=== PATIENT | male | born 1985 | race African-American/Black ===

== ENCOUNTER → 2016-12-03 | Outpatient (CLI) | payer OTHER ==
[~2016-12-03] VITALS: Ht 175.3 cm; Wt 149.7 kg
[~2016-12-03] MED LIST: GUAI100L PO
[2016-12-03 14:53] VITALS: BP 133/85; PULSE 85; Ht 175.3 cm; Wt 149.7 kg
== END | disposition home or self-care (01) ==
LOC: C.NEUR 14:24
PROVIDERS: ATTEND Allergy & Immunology Allergy
DX: G47.30 Sleep apnea, unspecified (principal); G47.34 Idiopathic sleep related nonobstructive alveolar hypoventilation; E66.01 Morbid (severe) obesity due to excess calories

== ENCOUNTER 2023-05-25 03:29 | Inpatient (IN) ==
--- NOTE | 2023-05-25 03:44 | Emergency Department Note ---
Impression & Plan Respiratory failure, Altered mental state, Alcohol overdose ED Provider Note CHIEF COMPLAINT: Altered mental status HISTORY OF PRESENT ILLNESS: This 37-year-old male [facility] of a possible alcohol overdose. The patient was found sitting in an alley by police smelling of alcohol with an altered mental status. The patient was verbal with EMS staff and refused everything in the ambulance. When the patient arrived in the emergency department he was only partially responsive to questioning from nursing staff and did not answer any my questions. Unknown if there was any injury or trauma. Unknown if the patient ingested anything other than alcohol. REVIEW OF SYSTEMS: Unable to obtain due to patient condition ALLERGIES:Unable to obtain due to patient condition MEDICATIONS: Unable to obtain due to patient condition. The patient's mother does not think he is on any medication. PMH: Unable to obtain due to patient condition. The patient's mother does not believe he has any health problems other than being overweight. SOCIAL HISTORY: The patient's mother states that he does live and work in [email or web address]. The patient's mother lives in [place]. The patient's mother's phone number is [phone]. PHYSICAL EXAM: VITALS: Vitals are noted on the nurse's note and reviewed by myself. GENERAL: The patient was saying some mumbled words to nursing staff when I first walked in the room. However, he would not answer any questions appropriately. As I walked in the room the patient appeared to fall asleep and only responded to painful stimuli. SKIN: The skin was without obvious lacerations, abrasions, or rashes. Capillary reflex less than 2 seconds. EARS: External auditory canals clear, tympanic membranes pearly kay without erythema or effusion bilaterally. No tragus tenderness. No mastoid tenderness. No hemotympanum bilaterally. EYES: Pinpoint pupils bilaterally. Pupils are equal and somewhat reactive. Unable to test extraocular movements due to patient condition. Conjunctivae with mild injection, but no discharge. Sclerae without icterus. NOSE: Patent without discharge. MOUTH: Mucous membranes moist. Uvula midline. Airway patent. NECK: Supple without nuchal rigidity. HEART: Regular rate and rhythm without murmurs gallops or rubs. LUNGS: Clear to auscultation bilaterally without wheezes, rales or rhonchi. No retractions or accessory muscle use. ABDOMEN: Positive bowel sounds x 4. Normal tympanic percussion. Soft, no apparent tenderness to palpation, no obvious masses or organomegaly. No guarding or rebound tenderness. MUSCULOSKELETAL: Peripheral pulses 2+ and equal in the bilateral upper and lower extremities. NEUROLOGIC: The patient was only minimally responsive to painful stimuli during my exam. DIFFERENTIAL DIAGNOSIS: Differential diagnosis includes alcohol intoxication, drug intoxication, toxicologic, infection, hypoglycemia, electrolyte abnormalities, cardiac sources, intracerebral event, neurologic, trauma, psychosis, as well as other pathologies. EMERGENCY DEPARTMENT COURSE and MDM: I examined the patient. The patient was only responsive to painful stimuli upon my exam. EMS stated that the patient admitted to drinking alcohol and had been talking with them and refusing treatment in the ambulance. The patient was minimally verbally responsive to nursing staff upon initial arrival, but then appeared to fall asleep. The patient's pupils were pinpoint on exam. No obvious track sánchez on exam. The patient's blood sugar at bedside was 179. Straight cath urine sample was obtained to assess for drug use or infection. An IV lock was placed and labs were drawn. Conservative care measures were instituted and the patient was monitored throughout their stay. The patient was placed in a partially upright position. Aspiration precautions were instituted. Continuous vehicle monitor technician: Order was placed for continuous cardiac and pulse ox monitoring. Patient was placed on the vehicle monitor technician and continuous pulse ox. Patient was noted to be in normal sinus rhythm at an initial rate of 90 bpm. Nursing staff alerted me around 0425 that the patient's pulse ox kept dropping into the 80s even on an oxy mask. The patient's mental status also seemed to decline at that time and he was no longer responsive to even painful stimuli. I returned to the bedside along with Dr. Negron for evaluation of the patient. The patient's urine drug screen had not come back yet so he was given Narcan 0.4 mg IV followed by Narcan 2 mg IV with no change in his symptoms. The decision was made to intubate the patient along with additional work-up initiated. The patient was moved to room B1 for the intubation and continued monitoring. Please refer to Dr. Negron's note for intubation note as well as additional details. The patient was given 1 L normal saline solution bolus. EKG was interpreted by myself and shows sinus rhythm at 91 bpm with prolonged QT of [address] or T wave changes. White blood cell count was normal. Hemoglobin 12. Platelet count 249. Potassium low at 3.0. Glucose 182. The remainder of CMP was essentially unremarkable. Magnesium was normal. High- sensitivity troponin was normal. TSH was normal. Urinalysis negative for infection. Urine drug screen was negative. The patient's blood alcohol level was 312.7. Acetaminophen and salicylate level were negative. COVID was negative. ABG showed a pH of 7.32, PCO2 45, pO2 109, HCO3 23, and O2 sat of 98.2. Serum osmolality 367. CT of the head without contrast as well as CTA of the head and neck with contrast were reviewed by myself and read by radiology as below and showed no acute abnormalities. Chest x-ray was interpreted by myself and Dr. Negron and showed significant cardiomegaly. ET tube in relatively good position. Radiology report still pending. We were able to access the patient's mother's phone number via [employer] on the patient's phone. Dr. Negron spoke with the patient's mother who stated she did not think the patient had any health problems and did not think that he was on any medications. However, the patient's mother did not seem to have any significant information on the patient to contribute. The patient's mother was advised that the patient was in the emergency department and will likely be admitted to the ICU due to his condition. The patient did seem to arouse and try to move around when he had increased oral secretions a few times while intubated. However, the patient did not have any meaningful or purposeful arousal. He was unable to open his eyes on command and was unable to squeeze a hand on command. Therefore, he was re-sedated with Versed as needed while in the ER along with oral suctioning as needed. I spoke with Dr. Wu of the ICU as well as the hospitalist Dr. Self who agreed to admit the patient for further management. Please refer to their dictations for further details. The patient's care was transferred in critical, but stable condition. The patient was still intubated at the time of transfer of care. CRITICAL CARE: Dr. Negron and I have personally spent at least 150 minutes of critical care time in the direct management of this patient. This includes bedside care, interpretation of diagnostic studies, and testing, discussion with consultants, patient, and family members, and other required patient management activities. This 150 minutes is in excess of all separately billable procedures. DIAGNOSIS: Respiratory failure Altered mental status Alcohol overdose DISPOSITION: The patient was admitted for further evaluation and treatment Past Med/Surg History Social History Smoking Status: Unknown if ever smoked Allergies Allergies Allergy/AdvReac Type Severity Reaction Status Date / Time No Known Allergies Allergy Unverified 03/27/16 22:57 Home Meds Previous Rx's Medication Instructions Recorded Guaifenesin (Robitussin) 200 mg PO Q6H 7 days #1 btl 03/31/16 Results & Data (ED) Vital Signs Vital Signs - 24 hr 05/25/23 04:05 05/25/23 04:17 05/25/23 04:44 Temperature 36.5 C Temperature Source Oral Pulse Rate 93 H 110 H Pulse Rate from SpO2 Sensor Respiratory Rate 19 24 Blood Pressure 125/105 H Blood Pressure Mean 111 Pulse Oximetry 95 Oxygen Delivery Method Room Air Oxygen Flow Rate Fraction of Inspired Oxygen 40 Sepsis Recent Fever Within 48 Hours No Sepsis New/Unexplained Change in Mental Status N/A Sepsis Action Taken by Nursing No Action Required 05/25/23 04:04 05/25/23 04:28 05/25/23 04:30 Temperature Temperature Source Pulse Rate 90 94 H 103 H Pulse Rate from SpO2 Sensor 91 H 95 H 103 H Respiratory Rate 16 28 H 17 Blood Pressure 119/77 138/84 Blood Pressure Mean 91 102 Pulse Oximetry 78 L 81 L 91 Oxygen Delivery Method Room Air Oxymask Oxymask Oxygen Flow Rate 6 10 Fraction of Inspired Oxygen Sepsis Recent Fever Within 48 Hours Sepsis New/Unexplained Change in Mental Status Sepsis Action Taken by Nursing 05/25/23 04:41 05/25/23 05:20 05/25/23 05:30 Temperature Temperature Source Pulse Rate 110 H 92 H 88 Pulse Rate from SpO2 Sensor 110 H 92 H 88 Respiratory Rate 19 18 18 Blood Pressure 124/87 110/61 110/58 L Blood Pressure Mean 99 77 75 Pulse Oximetry 96 94 95 Oxygen Delivery Method Oxymask Mechanical Vent Mechanical Vent Mechanical Vent Oxygen Flow Rate Fraction of Inspired Oxygen 60 Sepsis Recent Fever Within 48 Hours Sepsis New/Unexplained Change in Mental Status Sepsis Action Taken by Nursing 05/25/23 06:00 05/25/23 07:34 05/25/23 06:16 Temperature Temperature Source Pulse Rate 95 H 90 84 Pulse Rate from SpO2 Sensor 95 H 85 Respiratory Rate 20 18 18 Blood Pressure 138/81 Blood Pressure Mean 100 Pulse Oximetry 97 94 96 Oxygen Delivery Method Mechanical Vent Oxygen Flow Rate Fraction of Inspired Oxygen 60 35 Sepsis Recent Fever Within 48 Hours Sepsis New/Unexplained Change in Mental Status Sepsis Action Taken by Nursing 05/25/23 06:16 05/25/23 06:30 05/25/23 06:30 Temperature Temperature Source Pulse Rate 81 Pulse Rate from SpO2 Sensor 81 Respiratory Rate 18 18 Blood Pressure 107/57 L 125/73 Blood Pressure Mean 73 90 Pulse Oximetry 96 97 Oxygen Delivery Method Oxygen Flow Rate Fraction of Inspired Oxygen Sepsis Recent Fever Within 48 Hours Sepsis New/Unexplained Change in Mental Status Sepsis Action Taken by Nursing 05/25/23 07:00 05/25/23 07:00 05/25/23 07:27 Temperature Temperature Source Pulse Rate 75 102 H Pulse Rate from SpO2 Sensor 75 100 H Respiratory Rate 18 18 Blood Pressure 120/81 Blood Pressure Mean 94 Pulse Oximetry 97 99 91 Oxygen Delivery Method Oxygen Flow Rate Fraction of Inspired Oxygen Sepsis Recent Fever Within 48 Hours Sepsis New/Unexplained Change in Mental Status Sepsis Action Taken by Nursing 05/25/23 07:27 05/25/23 07:31 05/25/23 07:31 Temperature Temperature Source Pulse Rate 98 H Pulse Rate from SpO2 Sensor Respiratory Rate 18 Blood Pressure 162/138 H 115/63 Blood Pressure Mean 146 80 Pulse Oximetry Oxygen Delivery Method Oxygen Flow Rate Fraction of Inspired Oxygen Sepsis Recent Fever Within 48 Hours Sepsis New/Unexplained Change in Mental Status Sepsis Action Taken by Nursing 05/25/23 07:46 05/25/23 07:46 05/25/23 08:42 Temperature Temperature Source Pulse Rate 85 86 Pulse Rate from SpO2 Sensor 85 Respiratory Rate 18 Blood Pressure 110/58 L Blood Pressure Mean 75 Pulse Oximetry 95 Oxygen Delivery Method Oxygen Flow Rate Fraction of Inspired Oxygen Sepsis Recent Fever Within 48 Hours Sepsis New/Unexplained Change in Mental Status Sepsis Action Taken by Nursing Laboratory Data 05/25/23 03:57 05/25/23 03:57 Lab Results 05/25/23 05/25/23 05/25/23 Range/Units 03:45 03:57 03:57 WBC 9.57 (4.8-10.8) K/ul RBC 4.50 L (4.70-6.10) M/uL Hgb 12.0 L (14.0-18.0) g/dl Hct 36.0 L (42.0-52.0) % MCV 80.0 (80.0-100.0) fL MCH 26.7 (25.0-34.0) pg MCHC 33.3 (32.0-36.0) g/dL RDW Std Deviation 44.7 (36.4-46.3) fL RDW Coeff of Artur 15.4 H (11.5-14.5) % Plt Count 249 (130-400) K/uL MPV 9.9 (9.4-12.4) fL Immature Gran % (Auto) 0.6 % Neut % (Auto) 52.7 % Lymph % (Auto) 37.1 % King % (Auto) 6.9 % Eos % (Auto) 2.1 % Baso % (Auto) 0.6 % Neut # (Auto) 5.04 (1.40-6.50) K/uL Lymph # (Auto) 3.55 H (1.2-3.4) K/uL King # (Auto) 0.66 H (0.11-0.59) K/uL Eos # (Auto) 0.20 (0-0.50) K/uL Baso # (Auto) 0.06 (0-0.2) K/uL Immature Gran # (Auto) 0.06 (0.01-0.20) K/uL ABG pH (7.35-7.45) ABG pCO2 (35-46) mmHg ABG pO2 (80-95) mmHg ABG HCO3 (19-24) mmol/L ABG O2 Saturation (90-95) % ABG Base Excess (-9-1.8) mEq/L Brendon Test (Pos) Oxygen Given Sodium 138 (136-145) mmol/L Potassium 3.0 L (3.5-5.1) mmol/L Chloride 103 (98-107) mmol/L Carbon Dioxide 26 (21-32) mmol/L Anion Gap 9 (3-11) BUN 11 (6-23) mg/dl Creatinine 0.92 (0.6-1.4) mg/dl Est Cr Clr Drug Dosing 165.4 ml/min Est GFR ( Amer) 124.5 ml/min Est GFR (Non-Af Amer) 107.4 ml/min BUN/Creatinine Ratio 12.0 (10-20) Glucose 182 H (70-99(Fasting)) mg/dl POC Glucose 179 H (70-99) mg/dl Estimat Average Glucose mg/dl Hemoglobin A1c (4.5-5.6) % Osmolality (280-300) mOsm/kg Calcium 8.6 (8.6-10.3) mg/dl Magnesium 1.8 (1.7-2.4) mg/dl Total Bilirubin 0.3 (0.2-1.0) mg/dl AST 25 (13-39) U/L ALT 21 (7-52) U/L Alkaline Phosphatase 44 (34-104) U/L Troponin I High Sens 4.7 (0-20) pg/ml Total Protein 7.0 (6.0-8.3) gm/dl Albumin 4.6 (3.4-5.0) gm/dl Globulin 2.4 L (2.5-4.0) gm/dl Albumin/Globulin Ratio 1.9 (0.9-2) TSH (0.300-4.500) uIu/ml Urine Color Urine Appearance (Clear) Urine pH (4.5-7.5) Ur Specific [place] (1.000-1.030) Urine Protein (Negative) Urine Glucose (UA) (Negative) Urine Ketones (Negative) Urine Blood (Negative) Urine Nitrite (Negative) Urine Bilirubin (Negative) Urine Urobilinogen (Negative) Ur Leukocyte Esterase (Negative) Urine WBC (Auto) (0-5) /hpf Urine RBC (Auto) (0-4) /hpf U Hyaline Cast (Auto) (0-5) /lpf U Epithel Cells (Auto) (0-5) /lpf Urine Bacteria (Auto) (Negative) Salicylates (3.0-30) mg/dl Urine Opiates Screen (Neg) Ur Methadone, Qual (Neg) Acetaminophen (10-30) ug/ml Urine Barbiturates (Neg) Ur Phencyclidine (PCP) (Neg) U Amphetamin/Meth Scrn (Neg) MDMA (Ecstasy) Screen (Neg) U Benzodiazepines Scrn (Neg) Ur Cocaine Metabolite (Neg) U Marijuana (THC) Screen (Neg) Ethyl Alcohol mg/dL (<10.0) mg/dl SARS-CoV-2, RNA, NAAT (NEGATIVE) 05/25/23 05/25/23 05/25/23 Range/Units 03:57 03:57 03:57 WBC (4.8-10.8) K/ul RBC (4.70-6.10) M/uL Hgb (14.0-18.0) g/dl Hct (42.0-52.0) % MCV (80.0-100.0) fL MCH (25.0-34.0) pg MCHC (32.0-36.0) g/dL RDW Std Deviation (36.4-46.3) fL RDW Coeff of Artur (11.5-14.5) % Plt Count (130-400) K/uL MPV (9.4-12.4) fL Immature Gran % (Auto) % Neut % (Auto) % Lymph % (Auto) % King % (Auto) % Eos % (Auto) % Baso % (Auto) % Neut # (Auto) (1.40-6.50) K/uL Lymph # (Auto) (1.2-3.4) K/uL King # (Auto) (0.11-0.59) K/uL Eos # (Auto) (0-0.50) K/uL Baso # (Auto) (0-0.2) K/uL Immature Gran # (Auto) (0.01-0.20) K/uL ABG pH (7.35-7.45) ABG pCO2 (35-46) mmHg ABG pO2 (80-95) mmHg ABG HCO3 (19-24) mmol/L ABG O2 Saturation (90-95) % ABG Base Excess (-9-1.8) mEq/L Brendon Test (Pos) Oxygen Given Sodium (136-145) mmol/L Potassium (3.5-5.1) mmol/L Chloride (98-107) mmol/L Carbon Dioxide (21-32) mmol/L Anion Gap (3-11) BUN (6-23) mg/dl Creatinine (0.6-1.4) mg/dl Est Cr Clr Drug Dosing ml/min Est GFR ( Amer) ml/min Est GFR (Non-Af Amer) ml/min BUN/Creatinine Ratio (10-20) Glucose (70-99(Fasting)) mg/dl POC Glucose (70-99) mg/dl Estimat Average Glucose mg/dl Hemoglobin A1c (4.5-5.6) % Osmolality (280-300) mOsm/kg Calcium (8.6-10.3) mg/dl Magnesium (1.7-2.4) mg/dl Total Bilirubin (0.2-1.0) mg/dl AST (13-39) U/L ALT (7-52) U/L Alkaline Phosphatase (34-104) U/L Troponin I High Sens (0-20) pg/ml Total Protein (6.0-8.3) gm/dl Albumin (3.4-5.0) gm/dl Globulin (2.5-4.0) gm/dl Albumin/Globulin Ratio (0.9-2) TSH (0.300-4.500) uIu/ml Urine Color Yellow Urine Appearance Clear (Clear) Urine pH 5.5 (4.5-7.5) Ur Specific [place] 1.012 (1.000-1.030) Urine Protein Trace H (Negative) Urine Glucose (UA) Negative (Negative) Urine Ketones Negative (Negative) Urine Blood Negative (Negative) Urine Nitrite Negative (Negative) Urine Bilirubin Negative (Negative) Urine Urobilinogen Negative (Negative) Ur Leukocyte Esterase Negative (Negative) Urine WBC (Auto) 1-5 (0-5) /hpf Urine RBC (Auto) 0-4 (0-4) /hpf U Hyaline Cast (Auto) 1-5 (0-5) /lpf U Epithel Cells (Auto) 0-5 (0-5) /lpf Urine Bacteria (Auto) Negative (Negative) Salicylates (3.0-30) mg/dl Urine Opiates Screen Neg (Neg) Ur Methadone, Qual Neg (Neg) Acetaminophen (10-30) ug/ml Urine Barbiturates Neg (Neg) Ur Phencyclidine (PCP) Neg (Neg) U Amphetamin/Meth Scrn Neg (Neg) MDMA (Ecstasy) Screen Neg (Neg) U Benzodiazepines Scrn Neg (Neg) Ur Cocaine Metabolite Neg (Neg) U Marijuana (THC) Screen Neg (Neg) Ethyl Alcohol mg/dL 312.7 H (<10.0) mg/dl SARS-CoV-2, RNA, NAAT (NEGATIVE) 05/25/23 05/25/23 05/25/23 Range/Units 03:57 03:57 04:30 WBC (4.8-10.8) K/ul RBC (4.70-6.10) M/uL Hgb (14.0-18.0) g/dl Hct (42.0-52.0) % MCV (80.0-100.0) fL MCH (25.0-34.0) pg MCHC (32.0-36.0) g/dL RDW Std Deviation (36.4-46.3) fL RDW Coeff of Artur (11.5-14.5) % Plt Count (130-400) K/uL MPV (9.4-12.4) fL Immature Gran % (Auto) % Neut % (Auto) % Lymph % (Auto) % King % (Auto) % Eos % (Auto) % Baso % (Auto) % Neut # (Auto) (1.40-6.50) K/uL Lymph # (Auto) (1.2-3.4) K/uL King # (Auto) (0.11-0.59) K/uL Eos # (Auto) (0-0.50) K/uL Baso # (Auto) (0-0.2) K/uL Immature Gran # (Auto) (0.01-0.20) K/uL ABG pH (7.35-7.45) ABG pCO2 (35-46) mmHg ABG pO2 (80-95) mmHg ABG HCO3 (19-24) mmol/L ABG O2 Saturation (90-95) % ABG Base Excess (-9-1.8) mEq/L Brendon Test (Pos) Oxygen Given Sodium (136-145) mmol/L Potassium (3.5-5.1) mmol/L Chloride (98-107) mmol/L Carbon Dioxide (21-32) mmol/L Anion Gap (3-11) BUN (6-23) mg/dl Creatinine (0.6-1.4) mg/dl Est Cr Clr Drug Dosing ml/min Est GFR ( Amer) ml/min Est GFR (Non-Af Amer) ml/min BUN/Creatinine Ratio (10-20) Glucose (70-99(Fasting)) mg/dl POC Glucose (70-99) mg/dl Estimat Average Glucose 174 mg/dl Hemoglobin A1c 7.7 H (4.5-5.6) % Osmolality (280-300) mOsm/kg Calcium (8.6-10.3) mg/dl Magnesium (1.7-2.4) mg/dl Total Bilirubin (0.2-1.0) mg/dl AST (13-39) U/L ALT (7-52) U/L Alkaline Phosphatase (34-104) U/L Troponin I High Sens (0-20) pg/ml Total Protein (6.0-8.3) gm/dl Albumin (3.4-5.0) gm/dl Globulin (2.5-4.0) gm/dl Albumin/Globulin Ratio (0.9-2) TSH 4.457 (0.300-4.500) uIu/ml Urine Color Urine Appearance (Clear) Urine pH (4.5-7.5) Ur Specific [place] (1.000-1.030) Urine Protein (Negative) Urine Glucose (UA) (Negative) Urine Ketones (Negative) Urine Blood (Negative) Urine Nitrite (Negative) Urine Bilirubin (Negative) Urine Urobilinogen (Negative) Ur Leukocyte Esterase (Negative) Urine WBC (Auto) (0-5) /hpf Urine RBC (Auto) (0-4) /hpf U Hyaline Cast (Auto) (0-5) /lpf U Epithel Cells (Auto) (0-5) /lpf Urine Bacteria (Auto) (Negative) Salicylates < 3.0 L (3.0-30) mg/dl Urine Opiates Screen (Neg) Ur Methadone, Qual (Neg) Acetaminophen < 3 L (10-30) ug/ml Urine Barbiturates (Neg) Ur Phencyclidine (PCP) (Neg) U Amphetamin/Meth Scrn (Neg) MDMA (Ecstasy) Screen (Neg) U Benzodiazepines Scrn (Neg) Ur Cocaine Metabolite (Neg) U Marijuana (THC) Screen (Neg) Ethyl Alcohol mg/dL (<10.0) mg/dl SARS-CoV-2, RNA, NAAT (NEGATIVE) 05/25/23 05/25/23 05/25/23 Range/Units 04:30 05:30 06:41 WBC (4.8-10.8) K/ul RBC (4.70-6.10) M/uL Hgb (14.0-18.0) g/dl Hct (42.0-52.0) % MCV (80.0-100.0) fL MCH (25.0-34.0) pg MCHC (32.0-36.0) g/dL RDW Std Deviation (36.4-46.3) fL RDW Coeff of Artur (11.5-14.5) % Plt Count (130-400) K/uL MPV (9.4-12.4) fL Immature Gran % (Auto) % Neut % (Auto) % Lymph % (Auto) % King % (Auto) % Eos % (Auto) % Baso % (Auto) % Neut # (Auto) (1.40-6.50) K/uL Lymph # (Auto) (1.2-3.4) K/uL King # (Auto) (0.11-0.59) K/uL Eos # (Auto) (0-0.50) K/uL Baso # (Auto) (0-0.2) K/uL Immature Gran # (Auto) (0.01-0.20) K/uL ABG pH 7.32 L (7.35-7.45) ABG pCO2 45 (35-46) mmHg ABG pO2 109 H (80-95) mmHg ABG HCO3 23 (19-24) mmol/L ABG O2 Saturation 98.2 H (90-95) % ABG Base Excess -3.1 (-9-1.8) mEq/L Brendon Test Pos (Pos) Oxygen Given 98% VENT Sodium (136-145) mmol/L Potassium (3.5-5.1) mmol/L Chloride (98-107) mmol/L Carbon Dioxide (21-32) mmol/L Anion Gap (3-11) BUN (6-23) mg/dl Creatinine (0.6-1.4) mg/dl Est Cr Clr Drug Dosing ml/min Est GFR ( Amer) ml/min Est GFR (Non-Af Amer) ml/min BUN/Creatinine Ratio (10-20) Glucose (70-99(Fasting)) mg/dl POC Glucose (70-99) mg/dl Estimat Average Glucose mg/dl Hemoglobin A1c (4.5-5.6) % Osmolality 367 H* (280-300) mOsm/kg Calcium (8.6-10.3) mg/dl Magnesium (1.7-2.4) mg/dl Total Bilirubin (0.2-1.0) mg/dl AST (13-39) U/L ALT (7-52) U/L Alkaline Phosphatase (34-104) U/L Troponin I High Sens (0-20) pg/ml Total Protein (6.0-8.3) gm/dl Albumin (3.4-5.0) gm/dl Globulin (2.5-4.0) gm/dl Albumin/Globulin Ratio (0.9-2) TSH (0.300-4.500) uIu/ml Urine Color Urine Appearance (Clear) Urine pH (4.5-7.5) Ur Specific [place] (1.000-1.030) Urine Protein (Negative) Urine Glucose (UA) (Negative) Urine Ketones (Negative) Urine Blood (Negative) Urine Nitrite (Negative) Urine Bilirubin (Negative) Urine Urobilinogen (Negative) Ur Leukocyte Esterase (Negative) Urine WBC (Auto) (0-5) /hpf Urine RBC (Auto) (0-4) /hpf U Hyaline Cast (Auto) (0-5) /lpf U Epithel Cells (Auto) (0-5) /lpf Urine Bacteria (Auto) (Negative) Salicylates (3.0-30) mg/dl Urine Opiates Screen (Neg) Ur Methadone, Qual (Neg) Acetaminophen (10-30) ug/ml Urine Barbiturates (Neg) Ur Phencyclidine (PCP) (Neg) U Amphetamin/Meth Scrn (Neg) MDMA (Ecstasy) Screen (Neg) U Benzodiazepines Scrn (Neg) Ur Cocaine Metabolite (Neg) U Marijuana (THC) Screen (Neg) Ethyl Alcohol mg/dL (<10.0) mg/dl SARS-CoV-2, RNA, NAAT NEGATIVE (NEGATIVE) Administered Medications Discontinued Medications Etomidate (Etomidate 2 Mg/Ml 20 Ml Vial) 30 mg IV NOW ONE Stop: 05/25/23 06:22 Last Admin: 05/25/23 04:34 Dose: 30 mg Documented By: SHARIF Fentanyl Citrate (Fentanyl Citrate Pf 100 Mcg/2 Ml Vial) Confirm Administered Dose 100 mcg .ROUTE .STK-MED ONE Stop: 05/25/23 04:42 Last Admin: 05/25/23 06:23 Dose: Not Given Documented By: SHARIF Fentanyl Citrate (Fentanyl Citrate Pf 100 Mcg/2 Ml Vial) Confirm Administered Dose 100 mcg .ROUTE .STK-MED ONE Stop: 05/25/23 05:57 Last Admin: 05/25/23 06:00 Dose: 100 mcg Documented By: MARIANN Fentanyl Citrate (Fentanyl Citrate Pf 100 Mcg/2 Ml Vial) 100 mcg IV NOW STA Stop: 05/25/23 06:20 Last Admin: 05/25/23 04:43 Dose: 100 mcg Documented By: SHARIF Sodium Chloride (Nss 1000ml) 1,000 mls @ 999 mls/hr IV .Q1H1M TONYA Stop: 05/25/23 05:45 Last Infusion: 05/25/23 07:58 Dose: 0 mls/hr Documented By: Admin: 05/25/23 06:26 Dose: 999 mls/hr Documented By: SHARIF Ioversol (Optiray 320 125ml) 118 ml IV ONCE ONE Stop: 05/25/23 05:16 Last Admin: 05/25/23 05:07 Dose: 118 ml Documented By: BECKA Midazolam HCl (Midazolam Hcl 1 Mg/Ml 2ml Vial) Confirm Administered Dose 2 mg .ROUTE .STK-MED ONE Stop: 05/25/23 04:42 Last Admin: 05/25/23 06:24 Dose: Not Given Documented By: SHARIF Midazolam HCl (Midazolam Hcl 1 Mg/Ml 2ml Vial) Confirm Administered Dose 2 mg .ROUTE .STK-MED ONE Stop: 05/25/23 05:56 Last Admin: 05/25/23 06:01 Dose: 2 mg Documented By: MARIANN Midazolam HCl (Midazolam Hcl 1 Mg/Ml 2ml Vial) 2 mg IV NOW STA Stop: 05/25/23 06:21 Last Admin: 05/25/23 04:43 Dose: 2 mg Documented By: SHARIF Midazolam HCl (Midazolam Hcl 5 Mg/Ml 2ml Vial) Confirm Administered Dose 10 mg .ROUTE .STK-MED ONE Stop: 05/25/23 07:18 Last Increment: 05/25/23 07:33 Dose: 5 mg Documented By: BRITTNI Miscellaneous (Rapid Sequence Induction Bag) Confirm Administered Dose 1 each N/A .STK-MED ONE Stop: 05/25/23 04:27 Last Admin: 05/25/23 06:19 Dose: Not Given Documented By: SHARIF Naloxone HCl (Naloxone Hcl 0.4 Mg/1 Ml Vial/Carp) 0.4 mg IV NOW STA Stop: 05/25/23 04:17 Last Admin: 05/25/23 04:20 Dose: 0.4 mg Documented By: SHARIF Naloxone HCl (Naloxone Hcl 0.4 Mg/1 Ml Vial/Carp) 2 mg IV NOW STA Stop: 05/25/23 06:25 Last Admin: 05/25/23 04:20 Dose: 2 mg Documented By: SHARIF Imaging Data Radiologist's Impression: Head CT 05/25/23 04:30 Exam(s): CT HEAD Without Contrast EXAM: CT Head Without Intravenous Contrast CLINICAL HISTORY: Reason for exam: Altered mental status. TECHNIQUE: Axial computed tomography images of the head/brain without intravenous contrast. CTDI is normal 37.51 mGy and DLP is 1793.43 mGy-cm. Automated exposure control was utilized for the study. A dose lowering technique was utilized adhering to the principles of ALARA. COMPARISON: CT March 28, 2016 FINDINGS: Brain: Unremarkable. No acute intracranial hemorrhage, edema or abnormal mass-effect. Ventricles: Unremarkable. No ventriculomegaly. Bones/joints: Unremarkable. No acute fracture. Soft tissues: Unremarkable. Sinuses: Unremarkable as visualized. No acute sinusitis. Mastoid air cells: Unremarkable as visualized. No mastoid effusion. IMPRESSION: No acute intracranial findings. Electronically signed by: Marlon James MD 05/25/23 06:42 AM Head CTA 05/25/23 04:30 Exam(s): CTA HEAD With Contrast IV Amt: 118 ml EXAM: CT Angiography Head With Intravenous Contrast CLINICAL HISTORY: Reason for exam: Altered mental status. TECHNIQUE: Axial computed tomographic angiography images of the head with intravenous contrast. CTDI is 36.33 mGy and DLP is 1793.43 mGy-cm. Automated exposure control was utilized for the study. A dose lowering technique was utilized adhering to the principles of ALARA. MIP reconstructed images were created and reviewed. CONTRAST: Patient received 118 ml of IV contrast COMPARISON: No relevant prior studies available. FINDINGS: Right internal carotid artery: No acute findings. Intracranial segment is patent with no significant stenosis. No aneurysm. Right anterior cerebral artery: Unremarkable. No occlusion or significant stenosis. No aneurysm. Right middle cerebral artery: Unremarkable. No occlusion or significant stenosis. No aneurysm. Right posterior cerebral artery: Unremarkable. No occlusion or significant stenosis. No aneurysm. Right vertebral artery: Unremarkable as visualized. Left internal carotid artery: No acute findings. Intracranial segment is patent with no significant stenosis. No aneurysm. Left anterior cerebral artery: Unremarkable. No occlusion or significant stenosis. No aneurysm. Left middle cerebral artery: Unremarkable. No occlusion or significant stenosis. No aneurysm. Left posterior cerebral artery: Unremarkable. No occlusion or significant stenosis. No aneurysm. Left vertebral artery: Unremarkable as visualized. Basilar artery: Unremarkable. No occlusion or significant stenosis. No aneurysm. IMPRESSION: Negative CT angiogram of the head. Electronically signed by: Linda Lopez MD 05/25/23 06:17 AM Neck CTA 05/25/23 04:30 Exam(s): CTA NECK With Contrast IV Amt: 118 ml EXAM: CT Angiography Neck With Intravenous Contrast CLINICAL HISTORY: Reason for exam: Altered mental status. TECHNIQUE: Routine carotid CT angiography protocol was performed with intravenous contrast. NASCET criteria using the distal ICAs for comparison were used for evaluation of stenoses. CTDI is 36.33 mGy and DLP is 1793.43 mGy-cm. Automated exposure control was utilized for the study. A dose lowering technique was utilized adhering to the principles of ALARA. MIP reconstructed images were created and reviewed. CONTRAST: Patient received 118 ml of IV contrast COMPARISON: None. FINDINGS: VASCULATURE: Right common carotid artery: Unremarkable. No occlusion or significant stenosis. No dissection. Right internal carotid artery: Unremarkable. Extracranial segment is patent with no occlusion or significant stenosis. No dissection. Right external carotid artery: Unremarkable. No occlusion. Right vertebral artery: Unremarkable. No occlusion or significant stenosis. No dissection. Left common carotid artery: Unremarkable. No occlusion or significant stenosis. No dissection. Left internal carotid artery: Unremarkable. Extracranial segment is patent with no occlusion or significant stenosis. No dissection. Left external carotid artery: Unremarkable. No occlusion. Left vertebral artery: Unremarkable. No occlusion or significant stenosis. No dissection. NECK: Bones/joints: Unremarkable. Soft tissues: Unremarkable. Lung apices: Bilateral upper lobe infiltrates. CAROTID STENOSIS REFERENCE USING NASCET CRITERIA: % ICA stenosis = (1 - narrowest ICA diameter/diameter of distal cervical ICA) x 100. Mild - <50% stenosis. Moderate - 50-69% stenosis. Severe - 70-94% stenosis. Near occlusion - 95-99% stenosis. Occluded - 100% stenosis. IMPRESSION: Negative CTA neck. Electronically signed by: Linda Lopez MD 05/25/23 06:36 AM Discharge Plan Visit Data Chief Complaint: Alcohol Intoxication ED Provider: Comfort Negron ED Midlevel Provider: Karley Mcmahan Discharge Problem: Respiratory failure, Altered mental state, Alcohol overdose Patient Disposition: Admitted As Inpatient Condition: Critical Forms Stand Alone Forms: [employer] Prescriptions Prescriptions: No Action Guaifenesin (Robitussin) syrup 200 mg PO Q6H 7 Days Qty: 1 0RF Rx Instructions: . Referrals Referrals: PCP,NO [Primary Care Provider] -
[2023-05-25] MEDS ORDERED: NALOXONE HCL 0.4 MG/1 ML VIAL/CARP IV STA ×2 (04:16→06:24)
[2023-05-25 04:18] LABS: Appearance Urine Clear (Clear); Bacteria Urine Automated Negative (Negative); Bilirubin Urine Negative (Negative); Blood Urine Negative (Negative); Color Urine Yellow; Epithelial Cell Urine Auto 0-5 /lpf (0-5); Glucose Urine UA Negative (Negative); Ketones Urine Negative (Negative); Leukocyte Esterase Urine Negative (Negative); Nitrite Urine Negative (Negative); Protein Urine Trace (Negative); RBC Urine Automated 0-4 /hpf (0-4); Specific Gravity Urine 1.012 (1.000-1.030); Urobilinogen Urine Negative (Negative); pH Urine 5.5 (4.5-7.5)
[2023-05-25 04:22] LABS: Basophils # (auto) 0.06 K/uL (0-0.2); Basophils % (auto) 0.6 %; Eosinophils % (auto) 2.1 %; Immature Granulocytes # (auto) 0.06 K/uL (0.01-0.20); Immature Granulocytes % (auto) 0.6 %; Lymphocytes # (auto) 3.55 K/uL (1.2-3.4); Lymphocytes % (auto) 37.1 %; Mean Corpuscular Hemoglobin 26.7 pg (25.0-34.0); Mean Corpuscular Hgb Conc 33.3 g/dL (32.0-36.0); Mean Platelet Volume 9.9 fL (9.4-12.4); Monocytes # (auto) 0.66 K/uL (0.11-0.59); Monocytes % (auto) 6.9 %; Neutrophils # (auto) 5.04 K/uL (1.40-6.50); Neutrophils % (auto) 52.7 %; Platelet Count 249 K/uL (130-400); RDW Coefficient of Variation 15.4 % (11.5-14.5); RDW Standard Deviation 44.7 fL (36.4-46.3); White Blood Count 9.57 K/ul (4.8-10.8)
[2023-05-25] MEDS ORDERED: RAPID SEQUENCE INDUCTION BAG ONE (04:26)
[2023-05-25 04:37] LABS: Albumin Globulin Ratio 1.9 (0.9-2); Albumin Level 4.6 gm/dl (3.4-5.0); Amphetamines+Metham, Urine Neg (Neg); Barbiturates, Urine Neg (Neg); Benzodiazepine, Urine Neg (Neg); Bilirubin,Total 0.3 mg/dl (0.2-1.0); Calcium 8.6 mg/dl (8.6-10.3); Cocaine, Urine Neg (Neg); Creatinine Clr Calc Pharmacy 165.4 ml/min; Est GFR (African American) 124.5 ml/min; Est GFR (Non-African American) 107.4 ml/min; Globulin 2.4 gm/dl (2.5-4.0); MDMA (Ecstacy), Urine Neg (Neg); Methadone, Urine Neg (Neg); Opiate, Urine Neg (Neg); Phencyclidine, Urine Neg (Neg)
[2023-05-25] MEDS ORDERED: MIDAZOLAM HCL 1 MG/ML 2ML VIAL ONE ×3 (04:41→08:34)
[2023-05-25] MEDS ORDERED: fentaNYL citrate PF 100 MCG/2 ML VIAL ONE ×2 (04:41→05:56)
[2023-05-25] MEDS ORDERED: SODIUM CHLORIDE 0.9% 1000ML 1,000 ML IV SCH (04:45)
[2023-05-25 04:47] LABS: Magnesium 1.8 mg/dl (1.7-2.4)
[2023-05-25 05:00] LABS: Acetaminophen < 3 ug/ml (10-30); Salicylate < 3.0 mg/dl (3.0-30)
[2023-05-25 05:07] LABS: Troponin I High Sensitivity 4.7 pg/ml (0-20)
[2023-05-25] MEDS ORDERED: OPTIRAY 320 125ml IV ONE (05:15)
--- NOTE | 2023-05-25 06:17 | CT Scan Report ---
Exam(s): CTA HEAD With Contrast IV Amt: 118 ml EXAM: CT Angiography Head With Intravenous Contrast CLINICAL HISTORY: Reason for exam: Altered mental status. TECHNIQUE: Axial computed tomographic angiography images of the head with intravenous contrast. CTDI is 36.33 mGy and DLP is 1793.43 mGy-cm. Automated exposure control was utilized for the study. A dose lowering technique was utilized adhering to the principles of ALARA. MIP reconstructed images were created and reviewed. CONTRAST: Patient received 118 ml of IV contrast COMPARISON: No relevant prior studies available. FINDINGS: Right internal carotid artery: No acute findings. Intracranial segment is patent with no significant stenosis. No aneurysm. Right anterior cerebral artery: Unremarkable. No occlusion or significant stenosis. No aneurysm. Right middle cerebral artery: Unremarkable. No occlusion or significant stenosis. No aneurysm. Right posterior cerebral artery: Unremarkable. No occlusion or significant stenosis. No aneurysm. Right vertebral artery: Unremarkable as visualized. Left internal carotid artery: No acute findings. Intracranial segment is patent with no significant stenosis. No aneurysm. Left anterior cerebral artery: Unremarkable. No occlusion or significant stenosis. No aneurysm. Left middle cerebral artery: Unremarkable. No occlusion or significant stenosis. No aneurysm. Left posterior cerebral artery: Unremarkable. No occlusion or significant stenosis. No aneurysm. Left vertebral artery: Unremarkable as visualized. Basilar artery: Unremarkable. No occlusion or significant stenosis. No aneurysm. IMPRESSION: Negative CT angiogram of the head. Electronically signed by: Linda Lopez MD 05/25/23 06:17 AM
[2023-05-25] MEDS ORDERED: fentaNYL citrate PF 100 MCG/2 ML VIAL IV STA (06:19)
[2023-05-25] MEDS ORDERED: MIDAZOLAM HCL 1 MG/ML 2ML VIAL IV STA ×2 (06:20→08:36)
[2023-05-25] MEDS ORDERED: ETOMIDATE 2 MG/ML 20 ML VIAL IV ONE (06:21)
--- NOTE | 2023-05-25 06:38 | CT Scan Report ---
Exam(s): CTA NECK With Contrast IV Amt: 118 ml EXAM: CT Angiography Neck With Intravenous Contrast CLINICAL HISTORY: Reason for exam: Altered mental status. TECHNIQUE: Routine carotid CT angiography protocol was performed with intravenous contrast. NASCET criteria using the distal ICAs for comparison were used for evaluation of stenoses. CTDI is 36.33 mGy and DLP is 1793.43 mGy-cm. Automated exposure control was utilized for the study. A dose lowering technique was utilized adhering to the principles of ALARA. MIP reconstructed images were created and reviewed. CONTRAST: Patient received 118 ml of IV contrast COMPARISON: None. FINDINGS: VASCULATURE: Right common carotid artery: Unremarkable. No occlusion or significant stenosis. No dissection. Right internal carotid artery: Unremarkable. Extracranial segment is patent with no occlusion or significant stenosis. No dissection. Right external carotid artery: Unremarkable. No occlusion. Right vertebral artery: Unremarkable. No occlusion or significant stenosis. No dissection. Left common carotid artery: Unremarkable. No occlusion or significant stenosis. No dissection. Left internal carotid artery: Unremarkable. Extracranial segment is patent with no occlusion or significant stenosis. No dissection. Left external carotid artery: Unremarkable. No occlusion. Left vertebral artery: Unremarkable. No occlusion or significant stenosis. No dissection. NECK: Bones/joints: Unremarkable. Soft tissues: Unremarkable. Lung apices: Bilateral upper lobe infiltrates. CAROTID STENOSIS REFERENCE USING NASCET CRITERIA: % ICA stenosis = (1 - narrowest ICA diameter/diameter of distal cervical ICA) x 100. Mild - <50% stenosis. Moderate - 50-69% stenosis. Severe - 70-94% stenosis. Near occlusion - 95-99% stenosis. Occluded - 100% stenosis. IMPRESSION: Negative CTA neck. Electronically signed by: Linda Lopez MD 05/25/23 06:36 AM
--- NOTE | 2023-05-25 06:43 | CT Scan Report ---
Exam(s): CT HEAD Without Contrast EXAM: CT Head Without Intravenous Contrast CLINICAL HISTORY: Reason for exam: Altered mental status. TECHNIQUE: Axial computed tomography images of the head/brain without intravenous contrast. CTDI is normal 37.51 mGy and DLP is 1793.43 mGy-cm. Automated exposure control was utilized for the study. A dose lowering technique was utilized adhering to the principles of ALARA. COMPARISON: CT March 28, 2016 FINDINGS: Brain: Unremarkable. No acute intracranial hemorrhage, edema or abnormal mass-effect. Ventricles: Unremarkable. No ventriculomegaly. Bones/joints: Unremarkable. No acute fracture. Soft tissues: Unremarkable. Sinuses: Unremarkable as visualized. No acute sinusitis. Mastoid air cells: Unremarkable as visualized. No mastoid effusion. IMPRESSION: No acute intracranial findings. Electronically signed by: Marlon James MD 05/25/23 06:42 AM
[2023-05-25 06:57] LABS: Allen Test Pos (Pos); Base Excess ABG -3.1 mEq/L (-9-1.8); HCO3 ABG 23 mmol/L (19-24); Oxygen Saturation ABG 98.2 % (90-95); PCO2 ABG 45 mmHg (35-46); PO2 ABG 109 mmHg (80-95); pH ABG 7.32 (7.35-7.45)
[2023-05-25] MEDS ORDERED: MIDAZOLAM HCL 5 MG/ML 2ML VIAL ONE (07:17)
[2023-05-25] MEDS ORDERED: PROPOFOL IV EMULSION 10 MG/ML 100 ML VIAL IV ONE (07:19)
--- NOTE | 2023-05-25 08:12 | History & Physical Report ---
Date of Service May 25, 2023 Assessment & Plan (1) Acute respiratory failure with hypoxia: Plan: 2/2 alcohol intoxication vs. aspiration pneumonitis vs. other cause CT Head, CTA Head/Neck negative for acute pathology Telemetry without significant arrhythmia Intubated by ER provider, will be admitted to ICU for monitoring Patient with periods of agitation since intubation; has received Versed 2mg dosing a few times per ER providers, however no long-term sedation has been initiated Suspect patient will improve and be able to be extubated in the near future if symptoms are due to alcohol intoxication (2) Alcohol intoxication: Plan: Unknown if history of alcohol use disorder, socially drinks per family, however per family has an episode a few years ago of passing out in the setting of alcohol intoxication (3) Hyperglycemia: Plan: History of per chart, with BSG 170s, A1c ordered ICU glycemic protocols History of Present Illness Chief Complaint: obtundation, inability to protect airway, progressive desaturation requiring intubation Primary Care Provider: NO PCP 37 yo M presented to the ER by EMS after being found in an alleyway. Was responsive at that time trying to refuse care, however his responsiveness decreased over time. While in ER noted by nursing staff to become less responsive, with progressive desaturation ultimately requiring intubation. Trial of Narcan was unsuccessful in arousing patient. Vitals otherwise normal without fevers, labwork notable for normal WBC count, Hgb 12, ABG 7.32/45/109/23, UA without evidence of infection, UDS negative, alcohol level 312.7. Ct Head and CTA Head/Neck without evidence of acute pathology. Collateral collected by ER provider from mother, who does not think patient has history of medical problems other than obesity. Hospitalist service consulted for admission to ICU, ICU provider aware. Allergies Allergy/AdvReac Type Severity Reaction Status Date / Time No Known Allergies Allergy Unverified 03/27/16 22:57 Home Medications Medication Instructions Recorded Confirmed Type Guaifenesin (Robitussin) 200 mg PO Q6H 7 days #1 btl 03/31/16 Rx Past Med/Surg History Social History Smoking Status: Unknown if ever smoked Hx Alcohol Use: Yes Hx Substance Use: No Preferred Language: Slovak Communication Ability: Effective [employer] Sales [employer] Required: No Beliefs That Will Affect Care: None Current Living Situation: Alone Feels Safe at Home: Yes Assistive Devices: None Review of Systems Review of Systems: Unobtainable due to endotracheal tube and Unobtainable due to reduced consciousness Physical Exam Constitutional: WD/WN, vitals as above Respiratory: normal respiratory effort, lungs clear to auscultation Cardiovascular: RRR, no murmur, no edema Gastrointestinal (Abdomen): normal bowel sounds, soft, nontender, no hepatosplenomegaly Skin: no rashes, warm and dry Psychiatric: A+Ox3, euthymic affect Results & Data Results & Data Vital Signs (Past 12 Hours) Vital Signs Temp Pulse Resp BP Pulse Ox O2 Del Method O2 Flow Rate 05/25/23 07:46 85 18 95 05/25/23 07:46 110/58 L 05/25/23 07:31 115/63 05/25/23 07:31 98 H 18 05/25/23 07:27 162/138 H 05/25/23 07:27 102 H 18 91 05/25/23 07:00 75 18 99 05/25/23 07:00 120/81 97 05/25/23 06:30 18 125/73 97 05/25/23 06:30 81 18 96 05/25/23 06:16 107/57 L 05/25/23 06:16 84 18 96 05/25/23 07:34 90 18 94 05/25/23 06:00 95 H 20 138/81 97 Mechanical Vent 05/25/23 05:30 88 18 110/58 L 95 Mechanical Vent 05/25/23 05:20 92 H 18 110/61 94 Mechanical Vent 05/25/23 04:41 110 H 19 124/87 96 Oxymask, Mechanical Vent 05/25/23 04:30 103 H 17 91 Oxymask 10 05/25/23 04:28 94 H 28 H 138/84 81 L Oxymask 6 05/25/23 04:04 90 16 119/77 78 L Room Air 05/25/23 04:44 24 05/25/23 04:17 110 H 05/25/23 04:05 36.5 C 93 H 19 125/105 H 95 Room Air FiO2 05/25/23 07:46 05/25/23 07:46 05/25/23 07:31 05/25/23 07:31 05/25/23 07:27 05/25/23 07:27 05/25/23 07:00 05/25/23 07:00 05/25/23 06:30 05/25/23 06:30 05/25/23 06:16 05/25/23 06:16 05/25/23 07:34 35 05/25/23 06:00 60 05/25/23 05:30 05/25/23 05:20 60 05/25/23 04:41 05/25/23 04:30 05/25/23 04:28 05/25/23 04:04 05/25/23 04:44 40 05/25/23 04:17 05/25/23 04:05 PG Care Time/CCT Total # of Minutes Spent Total Time Spent with Patient: Total time spent is greater than 50% in coordination of care (as documented) at patient's floor/unit and/or counseling patient: Coding Level of Care Code 73080 INT INP/OBS CARE 3/75MIN Diagnoses Acute respiratory failure with hypoxia J96.01 Alcohol intoxication F10.929 Hyperglycemia R73.9
--- NOTE | 2023-05-25 08:50 | Critical Care Consultation ---
Date of Consultation May 25, 2023 Assessment & Plan (1) Alcohol intoxication: Reason Critically Ill: Intubated for acute encephalopathy PLAN: Neuro: Acute encephalopathy: Alcohol intoxication -Alcohol level reported at 312, osmolar gap within normal limits -Urine drug screen negative, no evidence of sympathomimetic ingestion -Cannabinoid adulterants could be suspected however I feel this is all alcohol consumption Resp: Acute hypoxic respiratory failure -Given degree of intoxication and aspiration pneumonitis is certainly in the differential -Anticipate extubation in less than 12 hours, no indication for antibiotics at this time CV: Prolonged QT via EKG: QTc 464 -Follow-up repeat EKG when extubated and awake Fluids/Renal: Mild metabolic acidosis -Anticipated given alcohol intoxication ID: No indication for anti-infectives at this time GI/Nutrition: N.p.o. -Anticipate less than 12 hours of mechanical ventilation no indication for gastric ulcer prophylaxis Heme: Anemia NOS -Indices appear within normal limits will defer to primary care provider DVT prophylaxis: Lovenox Endocrine: ICU hyperglycemia protocol Vascular access: Peripheral IVs Code Status: Full code Disposition: ICU (2) Acute respiratory failure with hypoxia: (3) Anemia: (4) Hypokalemia: History of Present Illness Reason for Consultation: Acute respiratory failure secondary to acute encephalopathy Requesting Physician: Karley Mcmahan Attending Physician: Addis Fitzgerald History of Present Illness History is obtained from verbal report from ED midlevel provider. Patient was reported to have been found in a alley EMS was notified he was initially responsive and attempted to refuse care however he is awareness decreased. In the emergency department he was largely unable to respond to direct questioning. There was also report that he would become hypoxic and had sonorous respirations. The patient was intubated. Patient's drug screen was negative his alcohol level was elevated and he was reported not to exhibit any specific toxidrome. There is no significant past medical history obtainable from the patient. Allergies Allergy/AdvReac Type Severity Reaction Status Date / Time No Known Allergies Allergy Unverified 03/27/16 22:57 Home Medications Medication Instructions Recorded Confirmed Type Guaifenesin (Robitussin) 200 mg PO Q6H 7 days #1 btl 03/31/16 Rx Patient History Social History Smoking Status: Unknown if ever smoked Review of Systems Review of Systems: Unobtainable due to endotracheal tube Physical Exam Physical Exam: General: Sedated. nontoxic. Skin: Warm, dry, Head: Atraumatic Ears, nose, mouth and throat: airway obscured by endotracheal tube Cardiovascular: Normal peripheral perfusion Respiratory: Ventilator settings reviewed Gastrointestinal: Non distended Musculoskeletal: No deformity Results & Data Results & Data Vital Signs (Past 12 Hours) Vital Signs Temp Pulse Resp BP Pulse Ox O2 Del Method O2 Flow Rate 05/25/23 07:46 85 18 95 05/25/23 07:46 110/58 L 05/25/23 07:31 115/63 05/25/23 07:31 98 H 18 05/25/23 07:27 162/138 H 05/25/23 07:27 102 H 18 91 05/25/23 07:00 75 18 99 05/25/23 07:00 120/81 97 05/25/23 06:30 18 125/73 97 05/25/23 06:30 81 18 96 05/25/23 06:16 107/57 L 05/25/23 06:16 84 18 96 05/25/23 07:34 90 18 94 05/25/23 06:00 95 H 20 138/81 97 Mechanical Vent 05/25/23 05:30 88 18 110/58 L 95 Mechanical Vent 05/25/23 05:20 92 H 18 110/61 94 Mechanical Vent 05/25/23 04:41 110 H 19 124/87 96 Oxymask, Mechanical Vent 05/25/23 04:30 103 H 17 91 Oxymask 10 05/25/23 04:28 94 H 28 H 138/84 81 L Oxymask 6 05/25/23 04:04 90 16 119/77 78 L Room Air 05/25/23 04:44 24 05/25/23 04:17 110 H 05/25/23 04:05 36.5 C 93 H 19 125/105 H 95 Room Air FiO2 05/25/23 07:46 05/25/23 07:46 05/25/23 07:31 05/25/23 07:31 05/25/23 07:27 05/25/23 07:27 05/25/23 07:00 05/25/23 07:00 05/25/23 06:30 05/25/23 06:30 05/25/23 06:16 05/25/23 06:16 05/25/23 07:34 35 05/25/23 06:00 60 07/16/23 05:30 05/25/23 05:20 60 05/25/23 04:41 05/25/23 04:30 05/25/23 04:28 05/25/23 04:04 05/25/23 04:44 40 05/25/23 04:17 05/25/23 04:05 Coding Level of Care Code 58810 CRITICAL CARE 1ST 30-74M Diagnoses Alcohol intoxication F10.929 Acute respiratory failure with hypoxia J96.01 Anemia D64.9 Hypokalemia E87.6 Time Spent (min) 55
[2023-05-25 08:59] LABS: Estimated Average Glucose 174 mg/dl; Hemoglobin A1C 7.7 % (4.5-5.6)
--- NOTE | 2023-05-25 09:40 | Emergency Department Note ---
ED Visit Note I was called to the patient's bedside with Lita Mcmahan PA-C as the patient became more obtunded and had low O2 saturations. The decision was made to perform endotracheal intubation. Endotracheal Intubation Indication respiratory failure. The patient was on 100% oxygen via NRB prior to the procedure. Suction, airway equipment, RSI drugs, respiratory equipment, and appropriate personnel were prepared prior to the initiation of the procedure. A time out was taken. Induction was performed with 30 mg of IV etomidate. After observing the clinical benefit of the medications, the airway was easily visualized utilizing a glide scope. A 8.0 size ETT tube was placed atraumatically to 26 cm using standard technique. The cuff inflated without signs of malfunction. There were bilateral breath sounds, positive colormetric change, no gastric sounds, and post procedure pulse oximetry was 98%. Post intubation sedation was administered using IV Versed and IV fentanyl. There were no complications. A portable chest x-ray was obtained to confirm placement. The tube was in relatively good position. Patient was able to go for CT scan of the brain and CTA of the brain and neck. Patient required additional dose of IV Versed and IV fentanyl for sedation upon returning from radiology. Once I received the results of the CT scan from radiology, I was able to contact the patient's mother on his phone to see if I could obtain any additional history on this patient. .
--- NOTE | 2023-05-25 09:57 | XRay Report ---
XR chest 1V portable CLINICAL HISTORY: S/p intubation TECHNIQUE: Single frontal radiograph of the chest was obtained. Comparison: Comparison is made to chest radiograph 03/31/2016 FINDINGS: Endotracheal tube measures 4 cm from the joselin. Enteric tube is stable. Cardiomegaly is noted. There is prominence and cephalization of the vasculature with Ana M B lines seen. No evidence of pleural effusion or pneumothorax. IMPRESSION: 1. Cardiomegaly and moderate pulmonary edema. 2. Satisfactory appearance of endotracheal and enteric tubes. ACT 112: Negative or not required by law. Electronically signed by: Florentino Latif M.D. 05/25/2023 9:56 AM
[2023-05-25] MEDS ORDERED: PANTOprazole 40 MG in SYRINGE 0 ML IV SCH (11:00)
[2023-05-25] MEDS ORDERED: ICU Protocol for HYPERglycemia SCH (11:30)
--- NOTE | 2023-05-25 12:17 | Discharge Summary ---
Discharge Summary Date of Service May 25, 2023 Admission HPI Per Admitting Provider 37 yo M presented to the ER by EMS after being found in an alleyway. Was responsive at that time trying to refuse care, however his responsiveness decreased over time. While in ER noted by nursing staff to become less responsive, with progressive desaturation ultimately requiring intubation. Trial of Narcan was unsuccessful in arousing patient. Vitals otherwise normal without fevers, labwork notable for normal WBC count, Hgb 12, ABG 7.32/45/109/23, UA without evidence of infection, UDS negative, alcohol level 312.7. Ct Head and CTA Head/Neck without evidence of acute pathology. Collateral collected by ER provider from mother, who does not think patient has history of medical problems other than obesity. Hospitalist service consulted for admission to ICU, ICU pr ovider aware. Admission Exam Per Admitting Provider Constitutional: WD/WN, vitals as above Respiratory: normal respiratory effort, lungs clear to auscultation Cardiovascular: RRR, no murmur, no edema Gastrointestinal (Abdomen): normal bowel sounds, soft, nontender, no hepatosplenomegaly Skin: no rashes, warm and dry Psychiatric:I A+Ox3, euthymic affect Principal Dx & Hospital Course #1 = Principal Diagnosis (1) Acute respiratory failure with hypoxia: Suspected 2/2 alcohol intoxication given rapid improvement in the last few hours Per patient, last remembers leaving the bar to walk home, no ingestions other than alcohol to his knowledge CT Head, CTA Head/Neck negative for acute pathology Telemetry without significant arrhythmia Intubated by ER provider, extubated a few hours later by ICU provider, exam as above on discharge CM asked to chat with patient about medical assistance (2) Alcohol intoxication: Unknown if history of alcohol use disorder, socially drinks per family, advised to watch alcohol intake given Hx VANESSA and obtundation requiring intubation this admission (3) Hyperglycemia: History of per chart, with BSG 170s, A1c 7.7% Advised follow up with PCP for diagnosis of diabetes Discharge Exam Constitutional WD/WN, vitals as above Psychiatric A+Ox3, euthymic affect Updated Medication List Medication Instructions Recorded Confirmed Type Guaifenesin (Robitussin) 200 mg PO Q6H 7 days #1 btl 03/31/16 Rx Hospital Stay Data Consultations 05/25/23 07:21 Consult School Coordinator Stat 05/25/23 08:03 ED Decision to Admit Stat 05/25/23 10:25 Consult School Coordinator Routine Diagnostic Imagining Performed 05/25/23 04:30 CT head/brain wo con Stat CTA head w con [CT angio head w con] Stat CTA neck with con [CT angio neck with con] Stat Pending Results Patient Have Any Pending Studies at Discharge: No Discharge Instructions Given to Patient (Per Discharging Provider) You were admitted from emergency medical services with altered mental status and difficulty with breathing. In the emergency room you were intubated to help breathe for you. Your head imaging, electrolytes, and blood counts were normal. You should call [facility] to get more information on what happened that brought you into the hospital. Your alcohol level was quite elevated, so we believe that you may have blacked out, and between that and your sleep apnea you stopped breathing well on your own. We will have our social workers meet with you about insurance and billing concerns. Total Time Total Time Spent Total Time Spent (In Minutes): 40 mins Coding Level of Care Code None Diagnoses Acute respiratory failure with hypoxia J96.01 Alcohol intoxication F10.929 Hyperglycemia R73.9 Comment discharged <8 hours from admission
--- NOTE | 2023-05-25 12:41 | Electrocardiogram Report ---
Test Reason : Blood Pressure : / mmHG Vent. Rate : 091 BPM Atrial Rate : 091 BPM P-R Int : 210 ms QRS Dur : 094 ms QT Int : 378 ms P-R-T Axes : 072 019 052 degrees QTc Int : 464 ms Sinus rhythm with 1st degree A-V block Possible Left atrial enlargement Nonspecific T wave abnormality Prolonged QT Abnormal ECG When compared with ECG of 31-MAR-2016 02:46, [place] interval has increased QT has lengthened Confirmed by Amilcar Salomon ([id number]) on 05/25/2023 12:41:22 PM Referred By: Confirmed By:Amilcar Salomon
[2023-05-25] MEDS ORDERED: ENOXAPARIN INJ 40 MG/0.4 ML SYR SQ SCH (21:00)
== END 2023-05-25 12:45 | disposition home or self-care (01) | DRG 91 ==
LOC: ED 03:29 → 1E 08:15